=== PATIENT | male | born 1970 | race Hispanic/Latino ===

== ENCOUNTER 2019-01-28 16:22 | Emergency (ER) | payer MEDICAID, OTHER ==
[2019-01-28 16:23] VITALS: BMI 38.3
[2019-01-28 16:30] VITALS: RESP 18; TEMP 97.9
--- NOTE | 2019-01-28 17:03 | ED PDOC ---
HPI: Chest Pain Time Seen by Provider: 01/28/19 16:34 Chief Complaint (Nursing): Chest Pain Chief Complaint (Provider): CP History Per: Patient History/Exam Limitations: no limitations Additional Complaint(s): Pt reports L sided CP since 3 PM today, constant, tingling down L arm, associated with SOB and dizziness. Has had similar sxs in past. Reports noncompliance with lupus meds X years. Denies nausea, cough, palpitations. Past Medical History Reviewed: Nursing Documentation, Vital Signs Vital Signs: Last Vital Signs Temp 97.9 F 01/28/19 16:26 Pulse 82 01/28/19 16:26 Resp 18 01/28/19 16:26 BP 127/75 01/28/19 16:26 Pulse Ox 97 01/28/19 16:26 Primary Care Provider: FAMILY PROVIDER,NO - Medical History PMH: Asthma, Back Problems, Bronchitis, Kidney Stones, Chronic Kidney Disease Other PMH: Lupus - Surgical History Surgical History: Appendectomy, Back Surgery, Hernia Repair - Family History Family History: States: Unknown Family Hx - Social History Current smoker - smoking cessation education provided: No Alcohol: None Drugs: Denies - Immunization History Hx Tetanus Toxoid Vaccination: No Hx Influenza Vaccination: No Hx Pneumococcal Vaccination: No - Home Medications Home Medications: Ambulatory Orders Medication Instructions Recorded Azithromycin [Zithromax] 250 mg PO DAILY #6 tab 01/21/18 Benzonatate [Tessalon Perle] 100 mg PO TID PRN #15 capsule 01/21/18 Guaifenesin/Dextromethorphan 237 ml PO PRN PRN 01/21/18 [Cough Syrup Dm] predniSONE [Prednisone] 40 mg PO DAILY #10 tab 01/21/18 - Allergies Allergies/Adverse Reactions: Allergies Allergy/AdvReac Type Severity Reaction Status Date / Time iodine Allergy Verified 01/21/18 08:36 shellfish Allergy URTICARIA Uncoded 01/21/18 08:36 PACHECO Risk Score for UA/NSTEMI - PACHECO Risk Score Age > 64: NO 3 or more CAD Risk Factors: NO Known CAD (Stenosis greater than 50%): NO Aspirin use in past 7 days: NO Severe Angina: NO EKG ST changes greater than 0.5mm: NO Positive Cardiac Marker: NO PACHECO Score: 0 Risk %: 5% Wells Criteria for PE - Wells Criteria for Pulmonary Embolism Clinical Signs and Symptoms of DVT: No P.E is #1 Diagnosis, or Equally Likely: No Heart Rate >100: No Immobilization at least 3 days;Surgery previous 4 weeks: No Previous, objectively diagnosed PE or DVT: No Hemoptysis: No Malignancy w/treatment within 6 months, or palliative: No Total Score: 0 Review of Systems Constitutional: Negative for: Fever, Chills Cardiovascular: Positive for: Chest Pain. Negative for: Palpitations Respiratory: Positive for: Shortness of Breath. Negative for: Cough Gastrointestinal: Negative for: Nausea, Vomiting, Abdominal Pain, Diarrhea Skin: Negative for: Rash, Lesions Neurological: Negative for: Headache Physical Exam - Reviewed Nursing Documentation Reviewed: Yes Vital Signs Reviewed: Yes - Physical Exam Appears: Positive for: Well, No Acute Distress Head Exam: Positive for: ATRAUMATIC, NORMAL INSPECTION Skin: Positive for: Normal Color, Warm, Dry Eye Exam: Positive for: Normal appearance, EOMI, PERRL Neck: Positive for: Normal Cardiovascular/Chest: Positive for: Regular Rate, Rhythm. Negative for: Chest Non Tender (TTP L anterior chest wall) Respiratory: Positive for: Normal Breath Sounds. Negative for: Stridor, Wheezing, Respiratory Distress Back: Positive for: Normal Inspection Extremity: Positive for: Normal ROM Neurological/Psych: Positive for: Awake, Alert, Oriented - Laboratory Results Result Diagrams: 01/28/19 17:28 01/28/19 17:28 - ECG O2 Sat by Pulse Oximetry: 97 Medical Decision Making Medical Decision Makin yo male with L sided CP - labs - EKG - CXR Disposition - Clinical Impression Clinical Impression: Chest pain - Disposition Disposition: Against Medical Advice Disposition Time: 18:40 Condition: UNKNOWN Forms: Daily Dealy (Polish) Against Medical Advice - AMA Patient Left Against Medical Advice: The patient declines admission to the hospital and wishes to leave the Emergency Department. This action is against my medical advice. This decision was made with informed refusal. The patient was told that admission to the hospital is necessary. Explanation of the reasons why were discussed. The risks of leaving were explained to the patient and include, but are not limited to, worsening of known or currently unknown conditions, permanent disability and from undiagnosed or untreated conditions. The patient has the capacity to make this informed decision and understands my explanation of the current medical problem and risks of leaving. The patient voluntarily accepts these risks and signed an AMA form documenting our conversation. The patient was given the opportunity to ask questions and reconsider. The patient was encouraged to return to the Emergency Department at any time for further care.
[2019-01-28 17:33] LABS: BASO # 0.1 K/uL (0.0-0.2); BASO % 1.1 % (0.0-2.0); EOS # 0.5 K/uL (0.0-0.7); EOS % 6.1 % (0.0-4.0); HEMOGLOBIN 15.6 g/dL (12.0-18.0); LYMPH # 1.8 K/uL (1.0-4.3); LYMPH % 21.7 % (20.0-40.0); MEAN CELL VOLUME 89.2 fl (80.0-94.0); MEAN CORPUSCULAR HGB CONC 33.6 g/dL (33.0-37.0); MEAN PLATELET VOLUME 10.2 fl (7.2-11.7); MONO # 0.8 K/uL (0.0-0.8); MONO % 9.4 % (0.0-10.0); NEUT % 61.7 % (50.0-75.0); RBC 5.21 Mil/uL (4.40-5.90); RED CELL DISTRIBUTION WIDTH 12.7 % (11.5-14.5); WHITE BLOOD COUNT 8.1 K/uL (4.8-10.8)
[2019-01-28 17:41] LABS: PROTHROMBIN TIME 10.8 Seconds (9.8-13.1)
[2019-01-28 17:42] LABS: ALB/GLOB RATIO 1.4 (1.0-2.1); ALBUMIN 4.5 g/dL (3.5-5.0); ALT/SGPT 46 U/L (21-72); AST/SGOT 30 U/L (17-59); BLOOD UREA NITROGEN 13 mg/dl (9-20); CALCIUM 9.6 mg/dL (8.4-10.2); GFR NON-AFRICAN AMERICAN > 60
--- NOTE | 2019-01-28 17:43 | RAD ---
Date of service: 01/28/2019 HISTORY: CP COMPARISON: No prior. TECHNIQUE: 1 view obtained. FINDINGS: LUNGS: No active pulmonary disease. PLEURA: No significant pleural effusion identified, no pneumothorax apparent. CARDIOVASCULAR: No aortic atherosclerotic calcification present. Normal cardiac size. No pulmonary vascular congestion. OSSEOUS STRUCTURES: No significant abnormalities. VISUALIZED UPPER ABDOMEN: Normal. OTHER FINDINGS: None. IMPRESSION: No acute cardiopulmonary disease appreciated.
[2019-01-28 17:54] LABS: D DIMER < 200 ng/mlDDU (0-230)
[2019-01-28 19:28] VITALS: BP 162/88; PULSE 71
--- NOTE | 2019-01-29 22:56 | CARD ---
APPROVED REPORT Date of service: 01/28/2019 EKG Measurement Heart [id number] <Conclusion> Normal sinus rhythm Normal ECG
[2019-01-30 15:50] VITALS: O2SAT 97
== END 2019-01-28 19:24 | disposition left against medical advice (07) ==
LOC: H.ER 16:22
DX: R07.89 Other chest pain (principal); M32.9 Systemic lupus erythematosus, unspecified; Z91.19 Patient's noncompliance with other medical treatment and regimen